=== PATIENT | male | born 2000 | race Caucasian/White ===

== ENCOUNTER 2022-01-27 01:49 | Emergency (ER) | payer SELFPAY ==
[~2022-01-27] VITALS: Ht 180.3 cm; Wt 93.2 kg
[2022-01-27 01:53] VITALS: PULSE 92; TEMP 98.4
[2022-01-27 02:15] LABS: STREP SCREEN NEGATIVE
[2022-01-27] MEDS ORDERED: MAGIC MOUTH PO (02:23)
== END 2022-01-27 02:29 | disposition home or self-care (01) ==
LOC: COL.ER 01:49
PROVIDERS: Emergency Medicine
DX: J02.8 Acute pharyngitis due to other specified organisms (principal)

== ENCOUNTER 2023-01-30 22:19 | Emergency (ER) | payer BC ==
[~2023-01-30] VITALS: Ht 172.7 cm; Wt 90.9 kg
[~2023-01-30 22:19] MED LIST: MAGIC MOUTH PO
[2023-01-30 22:28] VITALS: TEMP 98.1
[2023-01-31 02:20] VITALS: BP 137/86; PULSE 99
== END 2023-01-30 23:15 | disposition home or self-care (01) ==
LOC: COL.ER 22:19
DX: S61.011A Laceration without foreign body of right thumb without damage to nail, initial encounter (principal); Z28.310 Unvaccinated for COVID-19; Y04.0XXA Assault by unarmed brawl or fight, initial encounter